=== PATIENT | male | born 1950 | race Caucasian/White ===

== ENCOUNTER 2018-09-10 08:12 | Inpatient (IN) ==
--- NOTE | 2018-08-21 11:45 | Anesthesiology Consultation ---
Date of Service August 21, 2018 Assessment & Plan (1) Encounter for pre-operative examination: - S/P Left TKA: 12/19/17: SAB x2 attempts at L4-L5 at [facility] + PNB - PCP addendum: 08/27/18: "Labs and EKG reviewed. Medically cleared." Chart Review Chart Review: Acceptable Risk for Surgery and Patient seen in Pre Admission Testing Teaching & Discussion Pre-Anesthesia Teaching/Discussion Notes: Instructed NPO after midnight before surgery,except medications with 15 cc of water. Medication instructions provided according to the PAT guidelines. History Surgery Operation Date: 09/10/18 13:30 Proposed Procedures p Right Total Knee Arthroplasty with Possible Tibal Stem - Alan Jasso DO Height/Weight Height: 5 ft 7 in Weight: 148.6 kg Allergies Allergy/AdvReac Type Severity Reaction Status Date / Time No Known Allergies Allergy Verified 08/13/18 15:21 Medications Home Medications Medication Instructions Recorded Confirmed Last Taken aspirin-caffeine [Andrea Back and 2 tab PO BID 08/13/18 08/13/18 Unknown Body] multivitamin 1 tab PO QAM 08/13/18 08/13/18 Unknown timolol maleate 1 drp OPHTHALMIC (EYE) BID 08/21/18 08/21/18 Unknown Past Medical History Medical History Glaucoma Hearing deficit HEARING AIDS BOTH EARS Morbid obesity Osteoarthritis Exercise / Class Metabolic Activity III < 4 Walking/Shop/Light housework (USES CANE PRN) Past Surgical History Surgical History History of colonoscopy x2 History of meniscectomy of left knee History of total knee replacement LEFT Hx of cervical spine surgery Hx of meniscectomy of right knee Past Anesthesia History No Hx of Anesthesia Complications and No Family Hx of Anesthesia Complications History of PONV No Hx of PONV and No Hx of Motion Sickness Social History Smoking Status: Light tobacco smoker tobacco type: cigarettes Smoking cigarettes per day: OCCASIONAL CIG W/SOCIAL USE; HX 2PPD X 30 YEARS (QUIT HEAVY USE YEARS AGO) Do You Dip or Chew Tobacco: No Hx Alcohol Use: No Hx Substance Use: No substance use type: does not use Review of Systems Patient denies chest pain, shortness of breath, reflux, cough, wheezing, palpit ations. Physical Exam Vital Signs VITALS BP 120/82 P 67 TEMP 98.2 SP02 95%RA RESP 16 PHYSICAL Full neck and c-spine range of motion. Full TMJ range of motion. TMD 3 finger breaths Mallampati Score 2 Dentition: missing molars, upper front cap Lungs: clear throughout to auscultation Cardiac: regular rate and rhythm, no murmurs noted Spine: normal Carotid arteries: negative bruit Extremities: non-pitting trace edema b/l Testing Laboratory Results 08/21/18 11:48 08/21/18 11:48 08/21/18 08/21/18 08/21/18 11:48 11:48 11:48 PT 10.4 INR 1.0 APTT 26.1 Hemoglobin A1c 5.5 Urine Color Urine Appearance Urine pH Ur Specific [place] Urine Protein Urine Glucose (UA) Urine Ketones Urine Nitrite Ur Leukocyte Esterase Urine WBC (Auto) Urine RBC (Auto) U Hyaline Cast (Auto) U Epithel Cells (Auto) Urine Bacteria (Auto) Blood Type O Positive Antibody Screen NEGATIVE 08/21/18 Unknown PT INR APTT Hemoglobin A1c Urine Color Yellow Urine Appearance Clear Urine pH 6.5 Ur Specific [place] 1.024 Urine Protein Negative Urine Glucose (UA) Negative Urine Ketones Negative Urine Nitrite Negative Ur Leukocyte Esterase Trace H Urine WBC (Auto) 5-10 H Urine RBC (Auto) 0-4 U Hyaline Cast (Auto) 0 U Epithel Cells (Auto) >30 H Urine Bacteria (Auto) Negative Blood Type Antibody Screen Electrocardiogram Date: 12/06/17 Findings: + NSR @ (61) Chest X-Ray Date: 12/06/17 Findings: + NAD
--- NOTE | 2018-08-21 11:56 | PAT Medication Instructions ---
Medication Instructions Date of Service August 21, 2018 Home Medications aspirin-caffeine [Andrea Back and Body] 2 tab PO BID multivitamin 1 tab PO QAM timolol maleate 1 drp OPHTHALMIC (EYE) BID ASK your surgeon for instructions aspirin-caffeine [Andrea Back and Body] 2 tab PO BID DO NOT take the morning of surgery multivitamin 1 tab PO QAM Take morning of surgery With a small sip of water, OTHERWISE NOTHING TO EAT OR DRINK AFTER MIDNIGHT: timolol maleate 1 drp OPHTHALMIC (EYE) BID Take evening before surgery timolol maleate 1 drp OPHTHALMIC (EYE) BID Other Notes If you have any questions please call us at [phone] or [phone] or [phone] or [phone]
[2018-08-21 12:22] LABS: Basophils # (auto) 0.03 K/uL (0-0.2); Basophils % (auto) 0.5 %; Eosinophils # (auto) 0.15 K/uL (0-0.5); Eosinophils % (auto) 2.3 %; Hematocrit (blood only) 49.7 % (42-52); Hemoglobin 16.8 g/dL (14.0-18.0); Immature Granulocytes # (auto) 0.01 K/uL (0.00-0.02); Immature Granulocytes % (auto) 0.2 %; Lymphocytes # (auto) 2.09 K/uL (1.2-3.4); Lymphocytes % (auto) 32.6 %; Mean Corpuscular Hgb Conc 33.8 g/dL (32-36); Mean Corpuscular Volume 90.4 fL (80-100); Mean Platelet Volume 9.1 fL (7.4-10.4); Monocytes # (auto) 0.55 K/uL (0.11-0.59); Monocytes % (auto) 8.6 %; Neutrophils # (auto) 3.59 K/uL (1.4-6.5); Neutrophils % (auto) 55.8 %; Platelet Count 166 K/uL (130-400); RDW Coefficient of Variation 14.5 % (11.5-14.5); RDW Standard Deviation 47.9 fL (36.4-46.3); White Blood Count 6.42 K/uL (4.8-10.8)
[2018-08-21 12:30] LABS: Appearance Urine Clear (Clear); Bacteria Urine Automated Negative (Negative); Bilirubin Urine Negative (Negative); Blood Urine Negative (Negative); Cast Urine Automated 0 /lpf (0-5); Color Urine Yellow; Epithelial Cell Urine Auto >30 /lpf (0-5); Glucose Urine UA Negative (Negative); Ketones Urine Negative (Negative); Leukocyte Esterase Urine Trace (Negative); Nitrite Urine Negative (Negative); Protein Urine Negative (Negative); RBC Urine Automated 0-4 /hpf (0-4); Specific Gravity Urine 1.024 (1.000-1.030); Urobilinogen Urine Negative (Negative); pH Urine 6.5 (4.5-7.5)
[2018-08-21 12:32] LABS: Estimated Average Glucose 111 mg/dl; Hemoglobin A1C 5.5 % (4.5-5.6)
[2018-08-21 12:36] LABS: Partial Thromboplastin Time 26.1 Seconds (21.0-31.0); Prothrombin Time 10.4 Seconds (9.0-12.0)
--- NOTE | 2018-08-21 13:42 | History & Physical Report ---
Date of Service August 21, 2018 date of surgery: 09/10/18 Assessment & Plan (1) Tricompartment osteoarthritis of right knee: Risks and benefits of procedure discussed in detail today, patient would like to proceed with a right total knee replacement at [facility] as scheduled. PCP is Dr Ramos. Will place on Lovenox 40mg SQ daily x 2 weeks post op, f/u 2 weeks post op for routine post-operative care and x-ray, sooner if having any problems. will make arrangements for OPPT at the time of discharge, did it at [facility] in [place] after his Left TKA. At this point in time, has failed conservative measures and would like to proceed with surgical intervention. History of Present Illness Chief Complaint: right knee pain Primary Care Provider: Price Ramos Mr Jones is a 67 year old male who is here for a follow up of right knee pain, presents for pre-op evaluation prior to a right total knee replacement at [facility]. He presents with pain and decreased range of mtion on the right side. He states that the symptoms have been chronic non-traumatic. The symptoms occur constantly and is getting worse. Currently the patient states that the symptoms are moderate-severe. The pain is described as aching and throbbing. He rates his current pain as 8/10. The symptoms are aggravated by walking, ADLs and using stairs. Phil states that the symptoms are relieved by no specific activity. He has been treated with a corticosteroid injection on the right side. he has also used NSAIDs including Aleve, IBU and Celebrex. Allergies Allergy/AdvReac Type Severity Reaction Status Date / Time No Known Allergies Allergy Verified 08/13/18 15:21 Home Medications Home Medications Medication Instructions Recorded Confirmed Type aspirin-caffeine [Andrea Back and 2 tab PO BID 08/13/18 08/13/18 History Body] multivitamin 1 tab PO QAM 08/13/18 08/13/18 History timolol maleate 1 drp OPHTHALMIC (EYE) BID 08/21/18 08/21/18 History Past Med/Surg History Medical History Glaucoma Hearing deficit HEARING AIDS BOTH EARS Morbid obesity Osteoarthritis Surgical History History of colonoscopy x2 History of meniscectomy of left knee History of total knee replacement LEFT Hx of cervical spine surgery Hx of meniscectomy of right knee Social History Preferred Language: B[place] Communication Ability: Effective Obstetrician/Gynecologist Required: No Beliefs That Will Affect Care: None Current Living Situation: Spouse and Family Other Information That Helps Us Care for You: No Feels Safe at Home: Yes Safety Concerns: Feels Safe At This Time Smoking Status: Light tobacco smoker Tobacco Type: cigarettes Cigarettes Per Day: OCCASIONAL CIG W/SOCIAL USE; HX 2PPD X 30 YEARS (QUIT HEAVY USE YEARS AGO) Do You Dip or Chew Tobacco: No Second Hand Exposure: No Hx Alcohol Use: No Hx Substance Use: No Review of Systems Review of Systems: All systems reviewed & are unremarkable except as noted in HPI & below Constitutional: no fever, no chills and no sweats Respiratory: no cough and no dyspnea Cardiovascular: no chest pain, no dyspnea and no orthopnea Gastrointestinal: no abdominal pain, no nausea and no vomiting Musculoskeletal: as per Subjective / HPI Physical Exam Physical Exam: HT: 5ft 7in Wt: 145.15kg BP: 134/84 pulse: 82 Constitutional: WD/WN, vitals as above no acute distress Respiratory: normal respiratory effort, lungs clear to auscultation no respiratory distress, no labored breathing and does not use accessory muscles Cardiovascular: RRR, no murmur, no edema Gastrointestinal (Abdomen): normal bowel sounds, soft, nontender, no hepatosplenomegaly Musculoskeletal: Right Knee Exam: Phil ambulates with a limp, overall varus alignment, no atrophy or ecchymosis, mild effusion, diffuse tenderness to the knee greatest over medial compartment, negative patellar apprehension , mild crepitation with motion, Patella position neutral, meghan's negative, Raegan's - lateral positive, Raegan's - medial positive, Posterior drawer- negative, anterior drawer negative, valgus stress negative, varus stress negative, no extensor lag, pain with active range of motion, less pain with passive painful ROM, Range of motion 0/3/110. No pain with active/passive ROM of ankle. Lower extremity strength normal. Lower extremity neuro-vascular is normal Results & Data Diagnostic Findings Right Knee X-ray from December 2017 confirms advanced degenerative changes to the right knee, narrowing of the medial compartment and patello-femoral joint with patellar spurring noted, findings showing joint space narrowing of the medial compartment and patello-femoral joint, osteophyte formation and subchondral sclerosis noted. overall varus alignment. no acute bony pathology noted.
[2018-08-21 14:10] LABS: Albumin Level 3.3 gm/dl (3.4-5.0); BUN Creatinine Ratio 19.3 (10-20); Creatinine Clr Calc Pharmacy 147.9 ml/min; Est GFR (African American) 115.2; Est GFR (Non-African American) 99.4; Potassium 4.6 mmol/L (3.5-5.1)
[~2018-09-10 08:12] MED LIST: ACETAMINOPHEN 500 MG TAB PO SCH; BUPIVACAINE 0.5 % 5 MG/1 ML PF 10ML VIAL ONE; CEFAZOLIN 3000MG 65 ML IV SCH; CeleBREX 200 MG CAP PO SCH; FAMOTIDINE 20 MG TAB PO SCH; GABAPENTIN 300 MG PO SCH; LR 500ML BOLUS, THEN 15ML/HR IV SCH; METOCLOPRAMIDE HCL 10 MG TABLET PO SCH; ROPIVACAINE 0.5% 5 MG/ML 30 ML VIAL ONE; ROPIVACAINE 0.5% HCL/PF 150 MG, BUPIVACAINE 0.5% MPF 30 ML, EPINEPHrine 30MG/30ML (OR U... INFIL SCH; TRANEXAMIC ACID 1,000 MG **IV Intra-op IV SCH; TRANEXAMIC ACID 1,000 MG **IV Pre-op IV SCH; TRANEXAMIC ACID 1,000 MG x 1 **For Topical Use TOP SCH; dexAMETHasone 4 MG TAB PO SCH
[2018-09-10] MEDS ORDERED: BUPIVACAINE 0.25% 30 ML VIAL ONE (08:22)
[2018-09-10] MEDS ORDERED: MIDAZOLAM HCL 1 MG/ML 2ML VIAL ONE (08:29)
[2018-09-10] MEDS ORDERED: fentaNYL citrate 100 MCG/2 ML VIAL ONE (08:29)
--- NOTE | 2018-09-10 09:30 | History & Physical Bridge Note ---
Date of Service September 10, 2018 History & Physical Bridge Note I have examined the patient, reviewed the History & Physical and in the interval since the performance of the History & Physical I have noted the following changes of clinical significance: no changes noted
[2018-09-10] MEDS ORDERED: ORTHO JOINT ANESTHETIC ONE (10:07)
[2018-09-10] MEDS ORDERED: BACITRACIN INJ 50,000 UNIT VIAL ONE (10:07)
[2018-09-10] MEDS ORDERED: ATROPINE SULFATE 0.1 MG/ML 10ML SYR IV PRN (11:01)
[2018-09-10] MEDS ORDERED: ePHEDrine sulfate 50 MG/ML AMP IV PRN (11:01)
[2018-09-10] MEDS ORDERED: PROPOFOL IV EMULSION 10 MG/ML 20 ML VIAL IV ONE ×2 (11:06→12:26)
[2018-09-10] MEDS ORDERED: LIDOCAINE HCL 2% 2 ML VIAL/AMP(20MG/ML) INFIL ONE (11:06)
[2018-09-10] MEDS ORDERED: ONDANSETRON INJ 2 MG/ML 2 ML VIAL ONE (11:06)
--- NOTE | 2018-09-10 12:12 | Operative Report ---
Post Operative Report Pre & Post Diagnosis Operation Date: 09/10/18 11:00 Pre-Op Diagnosis: Unilateral Primary Osteoarthritis, Right Knee Post-Op Diagnosis: Unilateral Primary Osteoarthritis, Right Knee Procedure Operation Date: 09/10/18 11:00 Actual Procedures p Right Total Knee Arthroplasty with Tibal Stem(Right) utilizing [employer] journey to non-block total knee arthroplasty size 6 femur size 5 tibia with a 16 x 100 mm stem 12 mm polyethylene and 35 oval patella- Alan Jasso DO Surgeon Alan Jasso DO Refrigeration Brazer/Solderer [employer] Estimated Blood Loss 5 Findings Consistent with Post-Op Diagnosis Patient presents with planes of ongoing pain to the right knee since then severe end-stage DJD subchondral sclerosis marginal osteophytes cystic changes eburnated bone [id number] varus alignment with a tibial shift on the femur with severe ligamentous laxity Specimens although response to conservative management Drains Medium bore Hemovac Complications none Disposition Accompanied Patient To Recovery: No Disposition: Recovery Room Indications Patient presents with severe end-stage tricompartmental degenerative joint disease right knee no response to conservative management including physical therapy and inflammatory relative rest activity modification corticosteroid injections Visco supplementation history is undergone successful left total knee arthroplasty presents today for right total knee arthroplasty the above intraoperative findings were noted. Description of Procedure After proper prepping and draping of the Right lower extremity anterior midline incision was made over the region of the extensor extensor mechanism after meticulous hemostasis was obtained and maintained in subcutaneous tissues a medial parapatellar incision was made The patella was subluxed lateralward the medial lateral gutter were cleaned from any hypertrophic synovitis and scar tissue of the distal femoral block was placed and the distal femoral osteotomy cut was made subsequently the chamfers anterior and posterior osteotomy cuts were made utilizing the 4-in-1 block the tibia was subsequently subluxed anteriorward medial and ateral meniscal remnants were excised in their entirety remnants of the anterior and posterior cruciate ligaments were excised in their entirety excellent exposure of the proximal tibia was obtained the tibial osteotomy guide was placed on the proximal tibial osteotomy cut was made once again the knee was irrigated with copious amounts of sterile saline solution the patella was subsequently everted lateralward thickened scar tissue around the patella was removed the patella was subsequently cut utilizing a freehand technique and was drilled prepared for final preparation and placement of patella socially flexion-extension gaps were checked and the equal and symmetric trials were placed to the appropriate femoral and tibial trials with poly-spacer being placed for equal flexion and extension gaps and full range of motion including extension to 0 and flexion to 140 the trial components after having been taken to recovery range of motion was subsequently removed meticulous h emostasis was obtained and maintained subsequently a knee block injection of joint cocktail including ropivacaine 0.5% 150 mg. Bupivacaine 0.5% epinephrine 1-200,030 mL's toradol 30 mg dexamethasone 4 mg ketamine 10 mg clonidine 100 micrograms normal saline solution 30 mg was infiltrated into the soft tissues of the posterior knee medial lateral gutters and periosteal synovium special attention was paid to protect neurovascular structures at all times subsequently trial components having been removed the knee was irrigated with sterile saline solution. debris was removed the proximal tibia was subsequently prepared and was made ready for the placement of the tibial component tibial component which was stem with a short stem of 100 mm x 16 reamed appropriately prior to placing the final tibial component and cemented with stem in position was also cemented and tamped into position the femoral component was subsequently placed and cemented in the position the patellar component was subsequently cemented in position because hemostasis once again obtained and maintained wound having been thoroughly irrigated with debridement and debridement lavage was performed as well as a medial parapatellar incision closed with #1 Vicryl in interrupted fashion subcutaneous was closed with #2 Vicryl skin was closed with skin clips. PA-C was necessary for prepping and drapping as well as wound closure of deep fascia Sub cutaneous tissue and skin and was necessary for the case. A sterile compressive dressing was placed patient was taken to recovery in stable condition of report dictated by Romero I attest to the content of the Intraoperative Record and any orders documented therein. Any exceptions are noted below. I attest to the content of the Intraoperative Record and any orders documented therein. Any exceptions are noted below.
--- NOTE | 2018-09-10 13:24 | XRay Report ---
XR knee RT 2V routine CLINICAL HISTORY: Surgical Post Op COMPARISON: None FINDINGS: Alignment of the right knee arthroplasty is anatomic. There is no fracture or unexpected r adiopaque foreign body. There are surgical drains. IMPRESSION: Expected findings following total right knee arthroplasty. Electronically signed by: Mic Busby M.D. 09/10/2018 1:22 PM
--- NOTE | 2018-09-10 13:27 | Anesthesiology Progress Note ---
Date of Service September 10, 2018 Anesthesia Post Procedure Vital Signs Vital Signs: Temp Pulse Pulse Resp BP BP Pulse Ox 09/10/18 13:15 53 L 14 130/86 98 09/10/18 13:05 49 L 25 H 131/87 98 09/10/18 12:57 36.1 C L 59 L 18 122/74 95 09/10/18 08:41 36.9 C 67 18 144/93 H 95 Transfer of Care Handoff Completed per policy Notes Mental Status: alert / awake / arousable and participated in evaluation Nausea / Vomiting: adequately controlled Pain: adequately controlled Airway Patency, RR, SpO2: stable & adequate BP & HR: stable & adequate Hydration State: stable & adequate Neuraxial Anesthesia: was administered and sensory block is resolving Anesthetic Complications: no major complications apparent and Pt Satisfied with anesthetic care
[2018-09-10] MEDS ORDERED: BISACODYL 10 MG SUPP PR PRN (14:13)
[2018-09-10] MEDS ORDERED: MAGNESIUM HYDROXIDE SUSP 30 ML UDC PO PRN (14:13)
[2018-09-10] MEDS ORDERED: ALUMINUM/MAGNESIUM SUSP 30 ML UDC PO PRN (14:13)
[2018-09-10] MEDS ORDERED: ONDANSETRON INJ 2 MG/ML 2 ML VIAL IV PRN (14:13)
[2018-09-10] MEDS ORDERED: NALOXONE HCL 0.4 MG/1 ML VIAL/CARP IV PRN (14:13)
[2018-09-10] MEDS ORDERED: HYDROmorphone INJ 1 MG/ML SYRINGE IV PRN (14:13)
[2018-09-10] MEDS ORDERED: METOCLOPRAMIDE HCL INJ 5 MG/ML 2 ML VIAL IV PRN (14:13)
[2018-09-10] MEDS: SODIUM CHLORIDE 0.9% 1000ML 1,000 ML IV SCH (15:02)
[2018-09-10] MEDS: KETOROLAC TROMETHAMINE 15 MG/ML VIAL IV SCH ×2 (15:04→20:32)
[2018-09-10] MEDS: ACETAMINOPHEN 500 MG TAB PO SCH ×2 (15:04→21:12)
[2018-09-10] MEDS: CEFAZOLIN 2000MG 2,000 MG/15 ML SYR IV SCH (18:48)
[2018-09-10] MEDS: SENNA 8.6 MG TAB PO SCH (20:32)
[2018-09-10] MEDS: DOCUSATE SODIUM 100 MG CAP PO SCH (20:32)
[2018-09-10] MEDS: TIMOLOL MALEATE 0.25% OP SOLN 5 ML BTL OPR SCH (20:33)
[2018-09-11] MEDS: SODIUM CHLORIDE 0.9% 1000ML 1,000 ML IV SCH (00:31)
[2018-09-11] MEDS: CEFAZOLIN 2000MG 2,000 MG/15 ML SYR IV SCH (02:22)
[2018-09-11] MEDS: KETOROLAC TROMETHAMINE 15 MG/ML VIAL IV SCH ×2 (02:24→07:51)
[2018-09-11] MEDS: ACETAMINOPHEN 500 MG TAB PO SCH ×3 (05:46→22:02)
[2018-09-11 06:31] LABS: Hematocrit (blood only) 40.1 % (42-52); Hemoglobin 13.5 g/dL (14.0-18.0); Mean Corpuscular Hgb Conc 33.7 g/dL (32-36); Mean Corpuscular Volume 90.5 fL (80-100); Mean Platelet Volume 9.7 fL (7.4-10.4); Platelet Count 164 K/uL (130-400); RDW Coefficient of Variation 13.9 % (11.5-14.5); RDW Standard Deviation 46.1 fL (36.4-46.3); Red Blood Count 4.43 M/uL (4.7-6.1); White Blood Count 12.11 K/uL (4.8-10.8)
[2018-09-11 07:01] LABS: BUN Creatinine Ratio 24.6 (10-20); Calcium 8.9 mg/dl (8.5-10.1); Creatinine Clr Calc Pharmacy 174.1 ml/min; Est GFR (African American) 122.3; Est GFR (Non-African American) 105.5
[2018-09-11] MEDS: MULTIVITAMIN TAB PO SCH (07:51)
[2018-09-11] MEDS: TIMOLOL MALEATE 0.25% OP SOLN 5 ML BTL OPR SCH ×2 (07:51→20:36)
[2018-09-11] MEDS: DOCUSATE SODIUM 100 MG CAP PO SCH ×2 (07:51→20:36)
[2018-09-11] MEDS: OXYCODONE HCL IR 5 MG TAB (IMMEDIATE RELEASE) PO PRN ×3 (07:59→19:06)
--- NOTE | 2018-09-11 08:21 | Orthopedic Progress Note ---
Date of Service September 11, 2018 Assessment & Plan (1) Status post total right knee replacement: POD #1 s/p Right TKA pt/ot dvt proph with JORDAN/SCD/Lovenox x 2 weeks plan for d/c home with OPPT when stable, likely Saturday LESLEY dressing x 7 days Subjective POD #1 s/p right tka Review of Systems Constitutional: no fever, no chills and no sweats Respiratory: no cough Cardiovascular: no chest pain Gastrointestinal: no nausea and no vomiting Physical Exam Physical Exam: Vital Signs Temp 36.9 C 09/11/18 06:57 Pulse 60 09/11/18 06:57 Resp 16 09/11/18 06:57 BP 124/75 09/11/18 06:57 Pulse Ox 95 09/11/18 06:57 Intake & Output 09/10/18 09/11/18 09/11/18 18:59 06:59 18:59 Intake Total 1735 / 3210.000 1475.000 / 3210.00 0 Output Total 35 / 1560 1525 / 1560 Balance 1700 / 1650.000 -50.000 / 1650.000 Weight 149 kg Intake: IV 885 / 2360.000 1475.000 / 2360.00 0 Ancef 3000MG 6 5 ml @ 130 mls/hr 65 / 65 IV PREOP SLICK R x#:[id number] Lr 1,000 ml @ 15 mls/hr IV . 600 / 600 Q24H SLICK Rx#:[id number] Nss 1000ML 1,0 00 ml @ 100 mls/ 1475.000 / 1475.00 0 hr IV .Q10H SC H Rx#:[id number] Cyklokapron 1, 000 mg In Sodium 220 / 220 Chloride 100 m l @ 660 mls/hr IV 0630 SLICK Rx#:0 [id number] IV Perioperative 850 / 850 Output: Urine 750 / 750 Estimated Blood Loss 5 / 5 Drain Output 805 775 / 805 Right Knee Hem ovac 80 775 / 805 Constitutional: WD/WN, vitals as above no acute distress Musculoskeletal: right knee: NVDI, calf SNT, negative laurel sign. DP palpable, able to wiggle toes/ankle movement without difficulty. LESLEY on and functioning, RADHA dressing clean dry and intact. Vital Signs Temp 36.9 C 09/11/18 06:57 Pulse 60 09/11/18 06:57 Resp 16 09/11/18 06:57 BP 124/75 09/11/18 06:57 Pulse Ox 95 09/11/18 06:57 Intake & Output 09/10/18 09/11/18 09/11/18 18:59 06:59 18:59 Intake Total 1735 / 3210.000 1475.000 / 3210.00 0 Output Total 35 / 1560 1525 / 1560 Balance 1700 / 1650.000 -50.000 / 1650.000 Weight 149 kg Intake: IV 885 / 2360.000 1475.000 / 2360.00 0 Ancef 3000MG 6 5 ml @ 130 mls/hr 65 / 65 IV PREOP SLICK R x#:[id number] Lr 1,000 ml @ 15 mls/hr IV . 600 / 600 Q24H SLICK Rx#:0 [id number] Nss 1000ML 1,0 00 ml @ 100 mls/ 1475.000 / 1475.00 0 hr IV .Q10H SC H Rx#:[id number] Cyklokapron 1, 000 mg In Sodium 220 / 220 Chloride 100 m l @ 660 mls/hr IV 0630 SLICK Rx#:0 [id number] IV Perioperative 850 / 850 Output: Urine 750 / 750 Estimated Blood Loss 5 / 5 Drain Output 30 / 805 775 / 805 Right Knee Hem ovac 30 / 805 775 / 805 Results & Data Vital Signs (Past 12 Hours) Vital Signs Temp Pulse Pulse Resp BP Pulse Ox 09/11/18 06:57 36.9 C 60 16 124/75 95 09/11/18 03:20 36.6 C 58 L 14 103/57 L 95 09/10/18 23:15 36.9 C 66 14 97/51 L 94 Laboratory Results Laboratory Results WBC 12.11 K/uL (4.8-10.8) H 09/11/18 05:50 RBC 4.43 M/uL (4.7-6.1) L 09/11/18 05:50 Hgb 13.5 g/dL (14.0-18.0) L 09/11/18 05:50 Hct 40.1 % (42-52) L 09/11/18 05:50 MCV 90.5 fL (80-100) 09/11/18 05:50 MCH 30.5 pg (25-34) 09/11/18 05:50 MCHC 33.7 g/dL (32-36) 09/11/18 05:50 RDW Std Deviation 46.1 fL (36.4-46.3) 09/11/18 05:50 RDW Coeff of Althea 13.9 % (11.5-14.5) 09/11/18 05:50 Plt Count 164 K/uL (130-400) 09/11/18 05:50 MPV 9.7 fL (7.4-10.4) 09/11/18 05:50 Immature Gran % (Auto) 0.2 % 08/21/18 11:48 Neut % (Auto) 55.8 % 08/21/18 11:48 Lymph % (Auto) 32.6 % 08/21/18 11:48 [place] % (Auto) 8.6 % 08/21/18 11:48 Eos % (Auto) 2.3 % 08/21/18 11:48 Baso % (Auto) 0.5 % 08/21/18 11:48 Immature Gran # (Auto) 0.01 K/uL (0.00-0.02) 08/21/18 11:48 Neut # (Auto) 3.59 K/uL (1.4-6.5) 08/21/18 11:48 Lymph # (Auto) 2.09 K/uL (1.2-3.4) 08/21/18 11:48 [place] # (Auto) 0.55 K/uL (0.11-0.59) 08/21/18 11:48 Eos # (Auto) 0.15 K/uL (0-0.5) 08/21/18 11:48 Baso # (Auto) 0.03 K/uL (0-0.2) 08/21/18 11:48 PT 10.4 Seconds (9.0-12.0) 08/21/18 11:48 INR 1.0 (0.9-1.1) 08/21/18 11:48 APTT 26.1 Seconds (21.0-31.0) 08/21/18 11:48 PTT Ratio 1.0 08/21/18 11:48 Sodium 142 mmol/L (136-145) 09/11/18 05:50 Potassium 4.0 mmol/L (3.5-5.1) 09/11/18 05:50 Chloride 111 mmol/L (98-107) H 09/11/18 05:50 Carbon Dioxide 29 mmol/L (21-32) 09/11/18 05:50 Anion Gap 2.0 (3-11) L 09/11/18 05:50 BUN 14 mg/dl (7-18) 09/11/18 05:50 Creatinine 0.57 mg/dl (0.6-1.4) L 09/11/18 05:50 Est Cr Clr Drug Dosing 174.1 ml/min 09/11/18 05:50 Est GFR ( Amer) 122.3 09/11/18 05:50 Est GFR (Non-Af Amer) 105.5 09/11/18 05:50 BUN/Creatinine Ratio 24.6 (10-20) H 09/11/18 05:50 Glucose 115 mg/dl (70-99) H 09/11/18 05:50 Estimat Average Glucose 111 mg/dl 08/21/18 11:48 Hemoglobin A1c 5.5 % (4.5-5.6) 08/21/18 11:48 Calcium 8.9 mg/dl (8.5-10.1) 09/11/18 05:50 Albumin 3.3 gm/dl (3.4-5.0) L 08/21/18 11:48 Urine Color Yellow 08/21/18 Unknown Urine Appearance Clear (Clear) 08/21/18 Unknown Urine pH 6.5 (4.5-7.5) 08/21/18 Unknown Ur Specific [place] 1.024 (1.000-1.030) 08/21/18 Unknown Urine Protein Negative (Negative) 08/21/18 Unknown Urine Glucose (UA) Negative (Negative) 08/21/18 Unknown Urine Ketones Negative (Negative) 08/21/18 Unknown Urine Blood Negative (Negative) 08/21/18 Unknown Urine Nitrite Negative (Negative) 08/21/18 Unknown Urine Bilirubin Negative (Negative) 08/21/18 Unknown Urine Urobilinogen Negative (Negative) 08/21/18 Unknown Ur Leukocyte Esterase Trace (Negative) H 08/21/18 Unknown Urine WBC (Auto) 5-10 /hpf (0-5) H 08/21/18 Unknown Urine RBC (Auto) 0-4 /hpf (0-4) 08/21/18 Unknown U Hyaline Cast (Auto) 0 /lpf (0-5) 08/21/18 Unknown U Epithel Cells (Auto) >30 /lpf (0-5) H 08/21/18 Unknown Urine Bacteria (Auto) Negative (Negative) 08/21/18 Unknown Blood Type O Positive 08/21/18 11:48 Antibody Screen NEGATIVE 08/21/18 11:48 Diagnostic Findings XR knee RT 2V routine CLINICAL HISTORY: Surgical Post Op COMPARISON: None FINDINGS: Alignment of the right knee arthroplasty is anatomic. There is no fracture or unexpected radiopaque foreign body. There are surgical drains. IMPRESSION: Expected findings following total right knee arthroplasty.
[2018-09-11] MEDS: ENOXAPARIN INJ 40 MG/0.4 ML SYR SQ SCH (12:19)
[2018-09-11] MEDS: SENNA 8.6 MG TAB PO SCH (20:36)
[2018-09-12] MEDS: OXYCODONE HCL IR 5 MG TAB (IMMEDIATE RELEASE) PO PRN ×3 (00:53→10:50)
[2018-09-12] MEDS: ACETAMINOPHEN 500 MG TAB PO SCH (06:10)
--- NOTE | 2018-09-12 07:13 | Orthopedic Progress Note ---
Date of Service September 12, 2018 Assessment & Plan (1) Status post total right knee replacement: POD #2 s/p Right TKA pt/ot dvt proph with JORDAN/SCD/Lovenox x 2 weeks plan for d/c home with OPPT after PT today. LESLEY dressing x 7 days Subjective POD #2 s/p right tka Review of Systems Constitutional: no fever, no chills and no sweats Respiratory: no cough Cardiovascular: no chest pain Gastrointestinal: no nausea and no vomiting Physical Exam Physical Exam: Vital Signs Temp 36.4 C L 09/12/18 06:16 Pulse 58 L 09/12/18 06:16 Resp 16 09/12/18 06:16 BP 118/77 09/12/18 06:16 Pulse Ox 97 09/12/18 06:16 Intake & Output 09/11/1809/12/09/12/18 18:59 06:59 18:59 Intake Total 980 / 980 Output Total 800 / 2300 1500 / 2300 Balance 180 / -1320 -1500 / -1320 Intake: Oral 980 / 980 Output: Urine 550 / 2050 1500 / 2050 Drain Output 250 / 250 Right Knee Hem ovac 250 / 250 Other: # Unmeasured Voi ds 2 1 Musculoskeletal: right knee: NVDI, calf SNT, negative laurel sign. DP palpable, able to wiggle toes/ankle movement without difficulty. LESLEY dressing clean dry and intact. expected post-operative bruising noted. Results & Data Vital Signs (Past 12 Hours) Vital Signs Temp Pulse Pulse Resp BP Pulse Ox 09/12/18 06:16 36.4 C L 58 L 16 118/77 97 09/11/18 23:56 37.0 C 67 14 108/66 93
--- NOTE | 2018-09-12 07:17 | Discharge Summary ---
Date of Service date of discharge: September 12, 2018 date of admission: 09/10/18 Admission HPI Per Admitting Provider Mr Jones is a 67 year old male who is here for a follow up of right knee pain, presents for pre-op evaluation prior to a right total knee replacement at [facility]. He presents with pain and decreased range of mtion on the right side. He states that the symptoms have been chronic non-traumatic. The symptoms occur constantly and is getting worse. Currently the patient states that the symptoms are moderate-severe. The pain is described as aching and throbbing. He rates his current pain as 8/10. The symptoms are aggravated by walking, ADLs and using stairs. Phil states that the symptoms are relieved by no specific activity. He has been treated with a corticosteroid injection on the right side. he has also used NSAIDs including Aleve, IBU and Celebrex. Principal Diagnosis right knee osteoarthritis Discharge Exam Vital Signs Temp 36.4 C L 09/12/18 06:16 Pulse 58 L 09/12/18 06:16 Resp 16 09/12/18 06:16 BP 118/77 09/12/18 06:16 Pulse Ox 97 09/12/18 06:16 Intake & Output 09/11/18 09/12/18 09/12/18 18:59 06:59 18:59 Intake Total 980 / 980 Output Total 800 / 2300 1500 / 2300 Balance 180 / -1320 -1500 / -1320 Intake: Oral 980 / 980 Output: Urine 550 / 2050 1500 / 2050 Drain Output 250 / 250 Right Knee Hemovac 250 / 250 Other: # Unmeasured Voids 2 1 Constitutional WD/WN, vitals as above no acute distress Musculoskeletal right knee: NVDI, calf SNT, negative laurel sign. DP palpable, able to wiggle toes/ankle movement without difficulty. LESLEY dressing clean dry and intact. expected post-operative bruising noted. Discharge Data Allergies Allergy/AdvReac Type Severity Reaction Status Date / Time No Known Allergies Allergy Verified 09/10/18 08:36 Consultations 09/10/18 14:13 Consult Case Management - Discharge Planning Routine Procedures Performed Operation Date: 09/10/18 11:00 Actual Procedures p Right Total Knee Arthroplasty with Tibal Stem(Right) - Alan Jasso DO Ordered Studies 09/10/18 05:00 US - OR guided needle placemen Routine Hospital Course (1) Status post total right knee replacement: POD #2 s/p Right TKA pt/ot dvt proph with JORDAN/SCD/Lovenox x 2 weeks plan for d/c home with OPPT after PT today. LESLEY dressing x 7 days Patient was a same day admission after undergoing a successful Right TKA. Pihl tolerated the procedure well. Post-operatively, his activity was progressed and well tolerated. Please refer to daily progress notes and PT notes for complete details. After exam on 09/12/18, patient felt to be stable for discharge home. Patient will f/u in the office in 2 weeks for further evaluation including x- rays and incision check, sooner if having any issues or concerns. Total Time Total Time Spent Total Time Spent (In Minutes): 20 Total Time Includes: Examination of the Patient, Discharge Planning and Medication Reconciliation Discharge Plan Discharge Items Patient Disposition: Home - Self-Care Reason For Visit: Unilateral Primary Osteoarthritis, Right Knee Discharge Diagnosis: right total knee replacement Condition: Good Discharge Goals: Decrease discomfort, Improve function and Increase independence Activity: Per 'Additional Instructions' section Lifting: Wait until after follow-up appointment Driving/Machine Use Comment: no driving until cleared by your surgeon Weightbearing Comment: WBAT with walker Non-emergency contact: Primary Care Provider and Surgeon Call non-emergency contact if: you have any medication questions, your temperature is above 101, your wound has increased redness, your wound has increased drainage and your wound pain has increased Follow-up/Referrals: Price Ramos [Primary Care Provider] - Diet: Regular Addtl Provider Instructions: ACTIVITY RECOMMENDATIONS: SELF CARE INSTRUCTIONS AFTER TOTAL KNEE REPLACEMENT A. You may need to continue a physical therapy program after discharge from the hospital. There are several options available to you. Your doctor will assist you in selecting the best one for you. 1. An out-patient facility 2 to 3 times a week for therapy or home therapy. 2. Continue working on all exercises taught to you in the hospital. Your goals should be to increase bending of your knee to 90 degrees and beyond and to fully straighten your knee. B. You may progress at your own pace from walking with a walker or crutches to a cane; then to no assistive devices. C. Make walking a part of your daily routine. Be up as much as comfortable with rest periods throughout the day. Rest with leg elevation is very important. Use the ice wrap frequently for the first 3-4 weeks. D. There are no restrictions on activities. You may ride in a car, shop, participate in director market research and all social activities. E. Wear the long elastic stockings (JORDAN hose) 20 hours a day for 2 weeks after surgery. They can be removed several times a day for laundering and for a bath. F. You may shower, no tub baths until cleared by your doctor. SPECIAL CARE INSTRUCTIONS: VERY IMPORTANT TO READ AND REVIEW A. There are a few signs you need to watch for after you are home. Call [facility] if you notice any of the followin. Increased severe knee pain. Some pain is expected especially when you exercise. 2. Increased swelling in your leg or knee; pain or swelling of the calf muscle in either lower leg. 3. Any fluid drainage from the incision. 4. Shortness of breath or chest pain. B. Please call [facility] at if you have any concerns or questions about your operation or recovery. The doctor or his nurse will return your call promptly. C. You must take antibiotics before dental work, bladder, bowel or other surgery. Your doctor will provide you with a permanent care to carry describing this precaution. IMPORTANT: * REMEMBER TO TAKE ASPIRIN, 81 MG, TWICE DAILY FOR 4 WEEKS UNLESS OTHERWISE DIRECTED. THIS IS YOUR BLOOD THINNER. * HIGH RISK PATIENTS MAY BE PRESCRIBED A STRONGER BLOOD THINNER. THIS WILL BE PROVIDED AT DISCHARGE. * CALL IF INCREASED PAIN, REDNESS, DRAINAGE OR FEVER GREATER THAT 101. * WEAR JORDAN HOSE 20 HOURS PER DAY FOR 2 WEEKS. * LESLEY Dressing- This is a large suction dressing covering your incision. This will help pull any excess drainage from the wound and allow your incision to heal properly. You may shower with this if you can keep the unit outside of the shower. If any bleeding or leakage is noted please call your doctor's office. This will remain on your incision for 7 days and then should be removed. This can be done yourself or by the home nursing staff if applicable. The entire unit is disposable once removed. Once removed, keep incision clean and dry. If redness or drainage is noted, please call your surgeon. DERMABOND Prineo- This is a mesh tape dressing that is covered with glue. It should remain in place until the incision is properly healed, usually 10-14 days. This dressing is designed to naturally slough off. You may trim the excess mesh tape as it peels off. Incision may be briefly wet in a shower. Dry immediately by blotting with a clean, dry towel. Do not bath or swim until instructed by your doctor. Do not scratch, rub, or pick at the dressing. Do not apply any topical ointments or lotions until dressing is completely removed and/or instructed by your doctor. There may be a small piece of suture material at one end of your incision. Do not pull or trim this. If it is bothersome or catching on clothing, you may cover it with a band-aid. FOLLOW UP VISIT: If appointment is not already scheduled: Please call [facility] to make a follow-up appointment for 2 weeks after your surgery at . Prescriptions: New acetaminophen [Tylenol Extra Strength] 500 mg Tablet 1,000 mg PO Q8 14 Days Qty: 84 RF: 0 oxycodone 5 mg Tablet 5 mg PO Q4H PRN (Reason: pain) Qty: 30 RF: 0 enoxaparin 40 mg/0.4 mL Syringe 40 mg subcut Q24H 14 Days Qty: 5.6 RF: 0 docusate sodium 100 mg Capsule 100 mg PO BID 10 Days Qty: 20 RF: 0 cefadroxil 500 mg capsule 500 mg PO BID 10 Days Qty: 20 RF: 0 Continued multivitamin Tablet 1 tab PO QAM RF: 0 timolol maleate 0.5 % Drops 1 drp OPHTHALMIC (EYE) BID RF: 0 Discontinued Andrea Back and Body 500-32.5 mg Tablet 2 tab PO BID RF: 0 Stand-Alone Forms: [facility] Discharge Orders: Discharge Order (Routine); Ordered 09/12/18 Ordered By: Jose Angel Merritt Admission Data Admit Date/Time: 09/10/18 13:06 Attending Provider: Alan Jasso Admit Provider: Alan Jasso Primary Care Provider: Price Ramos Service: Surgical Services
--- NOTE | 2018-09-12 07:22 | Anesthesiology Progress Note ---
Date of Service September 12, 2018 Anesthesia Post Procedure Vital Signs Vital Signs: Temp Pulse Pulse Resp BP BP Pulse Ox 09/12/18 06:16 36.4 C L 58 L 16 118/77 97 09/11/18 23:56 37.0 C 67 14 108/66 93 09/11/18 15:03 36.5 C 59 L 16 143/75 H 99 09/11/18 13:01 98 09/11/18 12:13 36.5 C 56 L 16 120/65 97 Pain Intensity Right Knee: Pain Intensity: 5 Notes Mental Status: alert / awake / arousable and participated in evaluation Nausea / Vomiting: adequately controlled Pain: adequately controlled Airway Patency, RR, SpO2: stable & adequate BP & HR: stable & adequate Hydration State: stable & adequate
[2018-09-12] MEDS: DOCUSATE SODIUM 100 MG CAP PO SCH (07:58)
[2018-09-12] MEDS: MULTIVITAMIN TAB PO SCH (07:58)
[2018-09-12] MEDS: TIMOLOL MALEATE 0.25% OP SOLN 5 ML BTL OPR SCH (07:59)
[2018-09-12] MEDS: ENOXAPARIN INJ 40 MG/0.4 ML SYR SQ SCH (12:49)
== END 2018-09-12 12:58 | disposition home or self-care (01) | DRG 470 ==
LOC: ASU 08:12 → 3E 13:06
DX: Z79.82 Long term (current) use of aspirin; M17.11 Unilateral primary osteoarthritis, right knee; Z79.899 Other long term (current) drug therapy